=== PATIENT | female | born 1935 | race Caucasian/White ===

== ENCOUNTER 2020-04-24 13:07 | Emergency (ER) | payer MEDICARE, SELFPAY ==
[2020-04-24 13:07] VITALS: PULSE 77; RESP 16; TEMP 36.7; O2SAT 98; BMI 24.9
[2020-04-24 13:27] VITALS: BP 188/80
--- NOTE | 2020-04-24 13:32 | XR_ITS ---
WS: [id number] Portable AP upright chest, 04/24/2020 Clinical Data: chest pain Comparison: None. Findings: No nodules, masses or effusions are seen. The heart is normal. The pulmonary vascularity is not increased. No pneumonia or pneumothorax is seen. The aortic arch and descending aorta are tortuo us. The diaphragms are flattened. XR/XR chest 1V portable [id number] Impression: Atherosclerosis and hyperinflation.
--- NOTE | 2020-04-24 13:32 | ECG_ITS ---
[facility] Test Date: 2020-04-24 Pat Name: Treva Brooks Department: Room: Gender: Female Practice Support Specialist: : 1935 Requested By: Mary Lyons I Order Number: [id number] [place] MD: Melinda Reynoso M.D. Measurements Intervals [place] Rate: 69 P: 74 AR: 164 QRS: 64 QRSD: 82 T: 70 QT: 369 QTc: 397 Interpretive Statements SINUS RHYTHM EARLY REPOLARIZATION [ST ELEVATION WITH NORMALLY INFLECTED T WAVE] No previous ECG available for comparison Electronically Signed On 04-24-2020 19:12:07 ELECTRONIC EQUIPMENT REPAIRER by Melinda Reynoso M.D. [id number]
[2020-04-24 13:44] LABS: Basophils % 0.7 %; Eosinophils # 0.1 10^3/uL (0.0-0.8); Eosinophils % 1.3 %; Hemoglobin 12.3 g/dL (11.5-15.3); Lymphocytes # 1.1 10^3/uL (0.8-4.8); Lymphocytes % 18.9 %; Mean Corpuscular HGB Conc 33.2 g/dL (30.0-36.0); Mean Corpuscular Hemoglobin 29.9 pg (28.0-34.0); Mean Platelet Volume 9.9 fL (7.4-10.4); Monocytes # 0.5 10^3/uL (0.2-0.9); Monocytes % 8.9 %; Neutrophils # 4.17 10^3/uL (1.8-7.7); Neutrophils % 70.2 %; Nucleated Red Blood Cells % 0 %; Platelet Count 254 10^3/cmm (130-400); Red Blood Count 4.11 10^6/uL (4.1-5.3); Red Cell Distribution Width 12.9 % (12.1-15.1); White Blood Count 5.9 10^3/uL (4.0-10.0)
--- NOTE | 2020-04-24 13:44 | ED_ITS ---
HPI - Chest Pain General: Chief Complaint: Chest Pain Stated Complaint: ABD PAIN Time Seen by Provider: 04/24/20 13:09 Source: patient Mode of arrival: EMS Limitations: no limitations History of Present Illness: HPI narrative: 84-year-old female patient with a history of irritable bowel syndrome and who presents to the emergency department with abdominal pain for the last 2 weeks. Abdominal pain is diffuse, with no nausea or vomiting. About 3 days ago she also developed substernal/epigastric pain, she has a prior history of esophagitis and has had upper GI endoscope in the past. She is here to be evaluated for the above. MD complaint: chest pain Onset (ago): day(s) (3) Timing of current episode: constant Prior episodes: No Onset: during rest Pain location: substernal and epigastric Pain radiation: none Severity: mild Quality: heaviness Relieving factors: nothing Exacerbating factors: nothing Associated symptoms: Reports abdominal pain; Deny dyspnea, fever(s) or palpitations Review of Systems General: Reports: 10 or more systems reviewed and unremarkable except in HPI and below Const: Denies: fever(s), chills or body aches Eyes: Denies: change in vision or blurry vision ENMT: Denies: throat pain, enlarged tonsils, odynophagia, hoarseness, mouth pain or swelling of lips/tongue Card: Reports: chest pain; Denies: palpitations, irregular heart rhythm, edema or swelling of feet/ankles Resp: Denies: dyspnea, productive cough or non-productive cough GI: Reports: abdominal pain : Denies: flank pain, difficulty voiding, dysuria, urinary frequency, urinary urgency or urinary hesitancy Musc: Denies: neck pain, back pain or extremity swelling Skin/Breast: Denies: rash, pruritus or erythema Neuro: Denies: headache(s), numbness in extremities or weakness in extremities Endo: Denies: polyuria, polydipsia or tired all the time Physical Exam Const: COMMON NORMALS: no acute distress, average body habitus, patient oriented x3, no limitations, healthy appearing, alert and well nourished HENMT: COMMON NORMALS: normocephalic, atraumatic and moist oral mucous membranes HEAD & SCALP: normocephalic and atraumatic Neck/C-Spine: COMMON NORMALS: no meningeal signs and no JVD Chest: COMMONS NORMALS: normal inspection of the chest and normal palpation of entire chest wall Resp: COMMON NORMALS: normal respiratory effort, No retractions, No use of accessory muscles, clear to auscultation bilaterally and percussion normal AUSCULTATION: clear to auscultation bilaterally PERCUSSION: percussion normal Cardio: COMMON NORMALS: no JVD, regular rate, regular rhythm, S1 normal heart sound present, S2 normal heart sound present, No gallops present (Cardio), No clicks present (Cardio), No murmurs present (Cardio), No rub (Cardio) and Peripheral pulses 2+ throughout RATE: regular rate RHYTHM: regular rhythm HEART SOUNDS: S1 normal heart sound present and S2 normal heart sound present PERIPHERAL PULSES: Peripheral pulses 2+ throughout GI: COMMON NORMALS: Normal to inspection, nondistended, normoactive bowel sounds present, Soft to palpation, non-tender, No hepatosplenomegaly present, no masses and no bruits PALPATION: Yes Soft to palpation and Yes No hepatosplenomegaly present Extremity: COMMON NORMALS: normal to inspection, full ROM, capillary refill normal, no calf tenderness and no pedal edema Neuro: COMMON NORMALS: patient oriented x3 SENSORIUM/ORIENTATION: Yes alert MENINGEAL SIGNS: Yes no meningeal signs Skin: COMMON NORMALS: no rashes or lesions noted, no wounds, turgor normal, no jaundice, no petechiae and no mottling GENERAL SKIN EXAM: no rashes or lesions noted and turgor normal Course Reevaluation(s): Reevaluation #1: Discussed her lab and imaging findings with her. Cardiac work-up negative. Lipase negative. UA is suggestive of a UTI, although she says she has interstitial cystitis. She is given a dose of intravenous ceftriaxone in the emergency department and she will be discharged home on oral antibiotics. The GI cocktail improved her symptoms, I will refer her for an outpatient endoscopy and give her a 2-week supply of oral pantoprazole. She voiced understanding and is in agreement with the plan. Time: 16:30 Vital Signs: Vital signs: Vital Signs Temperature 98.1 F 04/24/20 13:07 Pulse Rate 71 04/24/20 16:54 Respiratory Rate 16 04/24/20 16:54 Blood Pressure 155/65 04/24/20 16:54 Pulse Oximetry 99 04/24/20 16:54 MDM - Chest Pain MDM Narrative: Medical decision making narrative: 84-year-old female patient who presents with chest pain that is likely due to esophagitis/GERD. She has a history of the same. Pain improved following a GI cocktail. Evaluation was negative for an acute cardiac cause for her pain. She was also diagnosed with a UTI because a urine analysis was done since she had abdominal pain. She is discharged home on oral antibiotic and a PPI. She will be scheduled for an outpatient EGD. Medical Records: Attestation: I reviewed the patient's medical records. Lab Data: Attestation: I reviewed the patient's lab results. Labs: Lab Results 04/24/20 04/24/20 04/24/20 Range/Units 13:26 13:26 13:26 WBC 5.9 (4.0-10.0) 10^3/ uL RBC 4.11 (4.1-5.3) 10^6/u L Hgb 12.3 (11.5-15.3) g/dL Hct 37.0 (37.0-47.0) % MCV 90.0 (81-99) fL MCH 29.9 (28.0-34.0) pg MCHC 33.2 (30.0-36.0) g/dL RDW 12.9 (12.1-15.1) % Plt Count 254 (130-400) 10^3/c mm MPV 9.9 (7.4-10.4) fL Neut % (Auto) 70.2 % Lymph % (Auto) 18.9 % [place] % (Auto) 8.9 % Eos % (Auto) 1.3 % Baso % (Auto) 0.7 % Neut # (Auto) 4.17 (1.8-7.7) 10^3/u L Lymph # (Auto) 1.1 (0.8-4.8) 10^3/u L [place] # (Auto) 0.5 (0.2-0.9) 10^3/u L Eos # (Auto) 0.1 (0.0-0.8) 10^3/u L Baso # (Auto) 0.0 (0.0-0.1) 10^3/u L Nucleated RBC % (a uto) 0 % Nucleated RBCs # 0.0 /100WBC PT (12.1-14.9) SECO NDS INR (0.8-1.2) Sodium 129 L (136-145) mmol/L Potassium 4.4 (3.5-5.1) mmol/L Chloride 92 L (98-107) mmol/L Carbon Dioxide 25 (22-29) mmol/L Anion Gap 16.4 (5-19) BUN 6 L (8-23) mg/dL Creatinine 0.7 (0.5-0.9) mg/dL GFR Calculation Not Reportable Glucose 102 (65-115) mg/dL Calculated Osmolal ity 266 L (285-295) mOsm/k g Calcium 9.7 (8.5-10.5) mg/dL Total Bilirubin 0.3 (0.15-1.2) mg/dL AST 17 (0-32) U/L ALT 11 (0-33) U/L Alkaline Phosphata se 89 (35-105) IU/L Troponin T Baselin e 7 (0-10) ng/L Troponin T 120 [place] (0-10) ng/L Delta Troponin T (0-10) ABS# NT-Pro-B Natriuret Pep 202 (0-450) pg/mL Total Protein 6.8 (6.6-8.7) g/dL Albumin 4.0 (3.5-5.2) g/dL Globulin 2.8 (1.3-4.6) g/dL Lipase 50 (13-60) U/L Urine Color (Yellow) Urine Appearance (CLEAR) Urine pH (5-7) Ur Specific Gravit y (1.005-1.030) Urine Protein (Negative) Urine Glucose (UA) (Normal) Urine Ketones (Negative) Urine Blood (Negative) Urine Nitrate (Negative) Urine Bilirubin (Negative) Urine Urobilinogen (Negative) mg/dL Ur Leukocyte Rachel ase (Negative) Urine RBC (0-2) /hpf Urine WBC (0-5) /hpf Ur Squamous Epith Cells (0-5) /hpf Amorphous Sediment Urine Bacteria (NONE) /hpf 04/24/20 04/24/20 04/24/20 Range/Units 13:53 14:27 15:20 WBC (4.0-10.0) 10^3/ uL RBC (4.1-5.3) 10^6/u L Hgb (11.5-15.3) g/dL Hct (37.0-47.0) % MCV (81-99) fL MCH (28.0-34.0) pg MCHC (30.0-36.0) g/dL RDW (12.1-15.1) % Plt Count (130-400) 10^3/c mm MPV (7.4-10.4) fL Neut % (Auto) % Lymph % (Auto) % [place] % (Auto) % Eos % (Auto) % Baso % (Auto) % Neut # (Auto) (1.8-7.7) 10^3/u L Lymph # (Auto) (0.8-4.8) 10^3/u L [place] # (Auto) (0.2-0.9) 10^3/u L Eos # (Auto) (0.0-0.8) 10^3/u L Baso # (Auto) (0.0-0.1) 10^3/u L Nucleated RBC % (a uto) % Nucleated RBCs # /100WBC PT 13.80 (12.1-14.9) SECO NDS INR 1.03 (0.8-1.2) Sodium (136-145) mmol/L Potassium (3.5-5.1) mmol/L Chloride (98-107) mmol/L Carbon Dioxide (22-29) mmol/L Anion Gap (5-19) BUN (8-23) mg/dL Creatinine (0.5-0.9) mg/dL GFR Calculation Glucose (65-115) mg/dL Calculated Osmolal ity (285-295) mOsm/k g Calcium (8.5-10.5) mg/dL Total Bilirubin (0.15-1.2) mg/dL AST (0-32) U/L ALT (0-33) U/L Alkaline Phosphata se (35-105) IU/L Troponin T Baselin e (0-10) ng/L Troponin T 120 [place] 6.48 (0-10) ng/L Delta Troponin T -0.52 L (0-10) ABS# NT-Pro-B Natriuret Pep (0-450) pg/mL Total Protein (6.6-8.7) g/dL Albumin (3.5-5.2) g/dL Globulin (1.3-4.6) g/dL Lipase (13-60) U/L Urine Color Yellow (Yellow) Urine Appearance Clear (CLEAR) Urine pH 7 (5-7) Ur Specific Gravit y 1.000 L (1.005-1.030) Urine Protein Neg (Negative) Urine Glucose (UA) Norm (Normal) Urine Ketones 1+ H (Negative) Urine Blood Trace H (Negative) Urine Nitrate Negative (Negative) Urine Bilirubin Neg (Negative) Urine Urobilinogen Norm (Negative) mg/dL Ur Leukocyte Rachel ase 1+ H (Negative) Urine RBC 0-4 H (0-2) /hpf Urine WBC 5-10 H (0-5) /hpf Ur Squamous Epith Cells 0-4 H (0-5) /hpf Amorphous Sediment Not Reportable Urine Bacteria 2+ H (NONE) /hpf Imaging Data^: CXR: Attestation: I personally reviewed and interpreted this imaging study as follows: Radiologist's impression: [address] [address] XRay Report Signed Patient: Yudith Brooks #: [id number] : 1935cct#:[id number] Age/Sex: 84 / FADM Date: 04/24/20 Loc: [facility]/Bed: Attending Dr: Ordering Provider/Ordering MD: Mary Lyons [place] [facility] [place] of Service: 04/24/20 Procedure(s): XR chest 1V portable [id number] Accession Number(s): [id number] Report Number: [id number] WS: [id number] Portable AP upright chest, 04/24/2020 Clinical Data: chest pain Comparison: None. Findings: No nodules, masses or effusions are seen. The heart is normal. The pulmonary vascularity is not increased. No pneumonia or pneumothorax is seen. The aortic arch and descending aorta are tortuous. The diaphragms are flattened. XR/XR chest 1V portable [id number] Impression: Atherosclerosis and hyperinflation. Dictated By:Cristin Martel MD Signed By:Cristin Martel [facility] [place]:04/24/20 1352 DD/ 1351 EKG Data^: EKG 1: Attestation: I personally reviewed and interpreted this EKG as follows: EKG interpretation date: 04/24/20 EKG interpretation time: 13:14 Prior EKG tracings: not available for review Interpretation: Sinus rhythm. Heart rate is [address] changes. EKG 2: Attestation: I personally reviewed and interpreted this EKG as follows: EKG interpretation date: 04/24/20 EKG interpretation time: 15:34 Prior EKG tracings: available for review Interpretation: Normal sinus rhythm. Heart rate [address] changes. Normal axis. Discharge Plan Discharge Patient Disposition: Home Clinical Impression: Esophagitis, Non-cardiac chest pain, Acute UTI Condition: Stable Prescriptions: New Protonix 40 mg tablet,delayed release (DR/EC) 40 mg PO DAILY Qty: 14 RF: 0 Augmentin 500-125 mg tablet 1 tab PO BID Qty: 10 RF: 0 Continued clonazepam 1 mg tablet 1 mg PO BID@0700,2100 RF: 0 Restasis 0.05 % dropperette 0.05 drp ophthalmic (eye) BID@0700,2100 RF: 0 Allergy 1 tab PO DAILY PRN (Reason: Allergy Symptoms) RF: 0 Gas-X 1 tab PO DAILY PRN (Reason: excess gas) RF: 0 Discharge Orders: Discharge ED (Routine); Ordered 04/24/20 Ordered By: Mary Lyons Referrals: Edison Chong [Primary Care Provider] - 1-3 days Discharge Diet: As Directed Discharge Activity: Increase activity as tolerated Patient Instructions: Diet for Ulcers and Gastritis (ED), Gastroesophageal Reflux Disease (ED) Activity Restrictions/Additional Instructions: Return for any new or worsening symptoms. Follow-up with your primary care provider within 3 days. You will be contacted to schedule an outpatient endoscopy. Follow the diet as advised. Coding Level of Care Code ED Office Copy Selector for Chg Fwd Exam Comprehensive
[2020-04-24 14:01] LABS: Troponin(5th) Baseline 7 ng/L (0-10)
[2020-04-24 14:09] LABS: Alanine Aminotransferase 11 U/L (0-33); Alkaline Phosphatase 89 IU/L (35-105); Anion Gap 16.4 (5-19); Aspartate Amino Transferase 17 U/L (0-32); Blood Urea Nitrogen 6 mg/dL (8-23); Calcium 9.7 mg/dL (8.5-10.5); Carbon Dioxide 25 mmol/L (22-29); Chloride 92 mmol/L (98-107); Globulin 2.8 g/dL (1.3-4.6); Glucose 102 mg/dL (65-115); Lipase 50 U/L (13-60); NT Pro B Type Natriuretic Pept 202 pg/mL (0-450); Osmolality Calculated 266 mOsm/kg (285-295); Potassium 4.4 mmol/L (3.5-5.1); Sodium 129 mmol/L (136-145); Total Bilirubin 0.3 mg/dL (0.15-1.2); Total Protein 6.8 g/dL (6.6-8.7)
[2020-04-24 14:14] LABS: INR 1.03 (0.8-1.2)
[2020-04-24] MEDS: lidocaine 2% viscous 15 ML, aluminum-mag hydrox-simethicon 30 ML, sucralfate oral liq 1 GM PO (14:15)
[2020-04-24 14:28] VITALS: BP 156/104; PULSE 74; RESP 18; O2SAT 93
[2020-04-24 15:14] VITALS: BP 168/92; PULSE 76; RESP 18; O2SAT 98
[2020-04-24 15:16] LABS: Add Urine Culture? Yes; Add Urine Microscopic? YES; Bacteria Urine 2+ /hpf; Bilirubin Urine Neg (Negative); Blood Urine Trace (Negative); Glucose Urine UA Norm (Normal); Ketones Urine 1+ (Negative); Leukocyte Esterase Urine 1+ (Negative); Nitrate Urine Negative (Negative); Protein Urine Neg (Negative); RBC Urine 0-4 /hpf (0-2); Squamous Epithelial Cell Urine 0-4 /hpf (0-5); Urine Appearance Clear (CLEAR); Urine Color Yellow (Yellow); Urobilinogen Urine Norm (Negative); pH Urine 7 (5-7)
--- NOTE | 2020-04-24 15:32 | ECG_ITS ---
[facility] Test Date: 2020-04-24 Pat Name: Treva Brooks Department: Room: Gender: Female Podiatry Professor: : 1935 Requested By: Mary Lyons I Order Number: [id number] [place] MD: Melinda Reynoso M.D. Measurements Intervals [place] Rate: 67 P: 94 [place]: 171 QRS: 79 QRSD: 96 T: 61 QT: 383 QTc: 405 Interpretive Statements SINUS RHYTHM Compared to ECG 04/24/2020 13:14:17 Early repolarization no longer present Electronically Signed On 04-24-2020 19:17:55 COMPRESSOR ASSEMBLER by Melinda Reynoso M.D. [email or web address]/[id number]
[2020-04-24] MEDS: cefTRIAXone 1,000 MG in sodium chloride 0.9% (plus) 50 ML 100 MG IV (15:45)
[2020-04-24] MEDS: sodium chloride 0.9% 1,000 ML 999 ML IV (15:46)
[2020-04-24 15:50] VITALS: BP 140/78; PULSE 66; RESP 18; O2SAT 97
[2020-04-24 15:57] LABS: Troponin 5 2HR 6.48 ng/L (0-10)
[2020-04-24 16:01] LABS: Troponin 5 2HR Delta -0.52 ABS# (0-10)
[2020-04-24 16:54] VITALS: BP 155/65; PULSE 71; RESP 16; O2SAT 99
== END 2020-04-24 16:55 | disposition home or self-care (01) ==
PROVIDERS: Emergency Provider Family Medicine; PCP Family Medicine
DX: R07.89 Other chest pain (principal); N39.0 Urinary tract infection, site not specified; K20.90 Esophagitis, unspecified without bleeding
CPT/HCPCS: 12345; 36415; 71045; 80053; 81001; 83690; 83880; 84484; 85025; 85610; 87086; 93005; 96365; 99283; 99284; J0696; J7030

== ENCOUNTER 2022-06-03 14:01 | Emergency (ER) | payer MEDICARE, SELFPAY ==
[2022-06-03 14:04] VITALS: BP 154/113; PULSE 72; O2SAT 97; BMI 20.3
--- NOTE | 2022-06-03 14:10 | ED_ITS ---
HPI - Abdominal Pain General: Chief Complaint: Abdominal Pain Stated Complaint: ABDOMINAL PAIN/ DISTENTION Time Seen by Provider: 06/03/22 14:09 History of Present Illness: Ms. Brooks is an 87-year-old lady with history of IBS and H. pylori as well as history of cholecystectomy presenting to the emergency department for abdominal pain. She reports onset of symptoms earlier today. Mostly right lower quadrant associated with some nausea. Denies fevers. Worse with movement and palpation. Additionally last week she endorses some substernal and left chest heaviness with radiation of the neck that was exertional. She did not seek medical attention at that time. No other specific changes in health, exacerbating, or alleviating factors identified. Onset (ago): hour(s) Pain Consistency: constant Location: RLQ Severity: moderate Quality: aching Radiation: none Migration to: no migration Exacerbating factors: movement Relieving factors: nothing Associated Symptoms: Reports no associated symptoms Review of Systems General: Reports: 10 or more systems reviewed and unremarkable except in HPI and below PFSH ED PFSH: Medical History (Updated 06/11/22 @ 00:01 by DEVANTE Villalobos) IBS (irritable bowel syndrome) Surgical History (Updated 06/03/22 @ 14:27 by Richard Worthy MD) History of cholecystectomy Physical Exam Const: COMMON NORMALS: alert GENERAL APPEARANCE: cooperative and well developed HENMT: COMMON NORMALS: normocephalic and atraumatic HEAD & SCALP: normoc ephalic and atraumatic Eye: COMMON NORMALS: conjunctivae normal CONJUNCTIVA: Yes conjunctivae normal SCLERA: sclerae normal Neck/C-Spine: COMMON NORMALS: supple GENERAL: Yes trachea midline Resp: COMMON NORMALS: clear to auscultation bilaterally EFFORT & INSPECTION: Yes able to speak in complete sentences AUSCULTATION: clear to auscultation bilaterally Cardio: COMMON NORMALS: regular rate and regular rhythm RATE: regular rate RHYTHM: regular rhythm GI: COMMON NORMALS: Soft to palpation PALPATION: Yes Soft to palpation, Yes Tenderness to palpation present (GI) Details: RLQ, No Guarding due to palpation present (GI) and No Rigid due to palpation Extremity: GENERAL: Yes normal exam except as noted and No edema Neuro: COMMON NORMALS: moves all extremities SENSORIUM/ORIENTATION: Yes alert and No Orientation impaired Psych: COMMON NORMALS: mental status grossly normal and Normal thought process present THOUGHT PROCESS: Normal thought process present Course Vital Signs: Vital signs: Vital Signs Pulse Rate 70 06/03/22 14:12 Respiratory Rate 18 06/03/22 14:12 Blood Pressure 122/58 06/03/22 17:01 Pulse Oximetry 99 06/03/22 17:01 Oxygen Delivery Me thod 06/03/22 14:12 MDM - Abdominal Pain Medical Decision Making 87-year-old lady presenting with abdominal pain. Exam as above, abdominal tenderness without evidence of acute surgical abdomen. Patient is nontoxic in appearance. EKG demonstrates sinus rhythm with normal axis and intervals, no STEMI. Labs with no significant hematologic or metabolic abnormality to explain symptoms. Perhaps mild dehydration is present. No UTI. Chest x-ray with no lobar consolidation or pneumothorax. CT demonstrates likely enteritis, incidental findings discussed with patient. Most likely etiology of patient's symptoms is enteritis, constipation, and abdominal pain. Satisfactory for outpatient management. The results of ED evaluation were discussed with the patient including prescriptions and/or symptomatic cares (if applicable) including appropriate and responsible use, followup plan, and return precautions. The patient verbalized understanding and felt safe for discharge. Medical Records I reviewed the patient's medical records. Lab Data I reviewed the patient's lab results. 06/03/22 14:15 06/03/22 14:15 Labs/Radiology: Radiology Impressions Abdomen/Pelvis CT 06/03/22 14:18 IMPRESSION: 1. Prominent fluid in the small bowel without dilation may reflect an enteritis. 2. Diverticulosis without diverticulitis. 3. Emphysematous changes. 4. Bibasilar atelectasis. 5. Cholecystectomy. 6. Biliary dilation, likely related to prior cholecystectomy. 7. Left kidney lower pole nonobstructing calyceal stone. 8. Bilateral renal cysts, negative for follow up. 9. Constipation. COMMENTS: Consistent with the [place] [employer]'s Incidental Findings Committee white paper (J Am Ismael Radiol 2018): Any incidental renal lesion less than 1 cm or classified as too small to characterize, or any incidental cystic renal lesion characterized as simple-appearing, is likely benign. No follow-up imaging is recommended for these lesions per consensus recommendations based on imaging criteria. Chest X-Ray 06/03/22 14:18 IMPRESSION: No acute findings. Laboratory Results WBC 9.1 10^3/uL (4.0-10.0) 06/03/22 14:15 RBC 4.15 10^6/uL (4.1-5.3) 06/03/22 14:15 Hgb 12.2 g/dL (11.5-15.3) 06/03/22 14:15 Hct 38.4 % (37.0-47.0) 06/03/22 14:15 MCV 92.5 fl (81-99) 06/03/22 14:15 MCH 29.4 pg (28.0-34.0) 06/03/22 14:15 MCHC 31.8 g/dL (30.0-36.0) 06/03/22 14:15 RDW 14.3 % (12.1-15.1) 06/03/22 14:15 Plt Count 170 10^3/cmm (130-400) 06/03/22 14:15 MPV 11.5 fL (7.4-10.4) H 06/03/22 14:15 Neut % (Auto) 87.9 % 06/03/22 14:15 Lymph % (Auto) 6.8 % 06/03/22 14:15 [place] % (Auto) 4.7 % 06/03/22 14:15 Eos % (Auto) 0.2 % 06/03/22 14:15 Baso % (Auto) 0.2 % 06/03/22 14:15 Neut # (Auto) 8.03 10^3/uL (1.8-7.7) H 06/03/22 14:15 Lymph # (Auto) 0.6 10^3/uL (0.8-4.8) L 06/03/22 14:15 [place] # (Auto) 0.4 10^3/uL (0.2-0.9) 06/03/22 14:15 Eos # (Auto) 0.0 10^3/uL (0.0-0.8) 06/03/22 14:15 Baso # (Auto) 0.0 10^3/uL (0.0-0.1) 06/03/22 14:15 Nucleated RBC % (auto) 0 % 06/03/22 14:15 Nucleated RBCs # 0.0 /100WBC 06/03/22 14:15 Sodium 135 mmol/L (136-145) L 06/03/22 15:12 Potassium 4.9 mmol/L (3.5-5.1) 06/03/22 15:12 Chloride 103 mmol/L (98-107) 06/03/22 15:12 Carbon Dioxide 23 mmol/L (22-29) 06/03/22 15:12 Anion Gap 13.9 (5-19) 06/03/22 15:12 BUN 11 mg/dL (8-23) 06/03/22 15:12 Creatinine 0.6 mg/dL (0.5-0.9) 06/03/22 15:12 GFR Calculation Not Reportable 06/03/22 15:12 Glucose 130 mg/dL (65-115) H 06/03/22 15:12 Calculated Osmolality 281 mOsm/kg (285-295) L 06/03/22 15:12 Calcium 8.7 mg/dL (8.5-10.5) 06/03/22 15:12 Total Bilirubin 0.2 mg/dL (0.15-1.2) 06/03/22 15:12 AST 27 U/L (0-32) 06/03/22 15:12 ALT 17 U/L (0-33) 06/03/22 15:12 Alkaline Phosphatase 50 U/L (35-105) 06/03/22 15:12 Troponin T Baseline 6 ng/L (0-10) 06/03/22 14:15 Total Protein 6.1 g/dL (6.6-8.7) L 06/03/22 15:12 Albumin 3.4 g/dL (3.5-5.2) L 06/03/22 15:12 Globulin 2.7 g/dL (1.3-4.6) 06/03/22 15:12 Lipase 30 U/L (13-60) 06/03/22 15:12 Urine Color Yellow (Yellow) 06/03/22 15:09 Urine Appearance Clear (CLEAR) 06/03/22 15:09 Urine pH 5 (5-7) 06/03/22 15:09 Ur Specific [place] 1.020 (1.005-1.030) 06/03/22 15:09 Urine Protein Neg (Negative) 06/03/22 15:09 Urine Glucose (UA) Norm (Normal) 06/03/22 15:09 Urine Ketones Negative (Negative) 06/03/22 15:09 Urine Blood Neg (Negative) 06/03/22 15:09 Urine Nitrate Negative (Negative) 06/03/22 15:09 Urine Bilirubin Neg (Negative) 06/03/22 15:09 Urine Urobilinogen Neg mg/dL (Negative) 06/03/22 15:09 Ur Leukocyte Esterase Negative (Negative) 06/03/22 15:09 Discharge Plan Discharge Patient Disposition: Home Clinical Impression: Abdominal pain, Constipation, Enteritis Condition: Stable Prescriptions: No Action clonazepam 1 mg tablet 1 mg PO BEDTIME multivitamin Tablet 1 tab PO DAILY tetracycline 500 mg capsule 500 mg PO TID Rx Instructions: FOR 10 DAYS (RX FILLED 05/19/22) metronidazole 500 mg tablet 500 mg PO TID Rx Instructions: FOR 10 DAYS (RX FILLED 05/19/22) Pepto-Bismol 262 mg Tablet,Chewable 524 mg PO QID PRN (Reason: UNKNOWN) vitamin B complex Tablet 1 tab PO DAILY Vitamin D3 25 mcg (1,000 unit) Capsule 25 mcg PO DAILY Dry Eye Relief 1-0.2-0.2 % Drops 1 drp OPHTHALMIC (EYE) BID Prilosec OTC 20 mg Tablet,Delayed Release (Dr/Ec) 20 mg PO BID PreserVision AREDS-2 250-90-40-1 mg Capsule 1 tab PO BID Probiotic Blend 2 billion cell-50 mg Capsule 1 cap PO EVERY OTHER DAY magnesium oxide 400 mg magnesium Tablet 400 mg PO DAILY Discharge Orders: Discharge ED (Routine); Ordered 06/03/22 Ordered By: Richard Worthy Referrals: Edison Chong [Primary Care Provider] - Discharge Diet: Advance as tolerated and Clear Liquid Discharge Activity: Increase activity as tolerated Patient Instructions: Constipation (ED), Abdominal Pain (ED), Enteritis (ED), Opioid Safety Activity Restrictions/Additional Instructions: Thank you for visiting the emergency department. You were seen and evaluated for abdominal pain. The exact cause of your symptoms is unclear though likely related to enteritis and constipation. I recommend increasing your MiraLAX to 3 times daily for the next 3 days and the n adjust as necessary to have multiple applesauce consistency bowel movements per day. Please ensure that you are staying hydrated. Please follow-up with your primary care provider. Return to the emergency department for uncontrolled symptoms, failure to improve, or anything else that you are concerned about and feel needs emergency department evaluation. Coding Level of Care Code ED Senior Clinical Data Coordinator for Sonam Saldivar
[2022-06-03 14:12] VITALS: BP 137/65; PULSE 70; RESP 18; O2SAT 96
--- NOTE | 2022-06-03 14:18 | CTR_ITS ---
PROCEDURE INFORMATION: Exam: CT Abdomen And Pelvis With Contrast Exam date and time: 06/03/2022 3:55 PM Age: 87 years old Clinical indication: Abdominal pain; Generalized; Prior surgery; Surgery date: 6+ months; Surgery type: Shelli; Tubal ligation; Additional info: Rlq pain TECHNIQUE: Imaging protocol: Computed tomography of the abdomen and pelvis with contrast. Radiation optimization: All CT scans at this facility use at least one of these dose optimization techniques: automated exposure control; mA and/or kV adjustment per patient size (includes targeted exams where dose is matched to clinical indication); or iterative reconstruction. Contrast material: OMNI 350; Contrast volume: 100 ml; Contrast route: INTRAVENOUS (IV); REPORTING DATA: Count of CT and Cardiac NM exams in prior 12 months: This patient has received 0 known CTs and 0 known cardiac nuclear medicine studies in the 12 months prior to the current study. COMPARISON: CR XR chest 1V portable [id number] 06/03/2022 2:45 PM RADIATION DOSE METRICS: Total DLP (mGy-cm): 452.83 FINDINGS: Lungs: Emphysematous changes. Bibasilar atelectasis. Liver: Normal. No mass. Gallbladder and bile ducts: Cholecystectomy. Biliary dilation, likely related to prior cholecystectomy. Pancreas: Normal. No ductal dilation. Spleen: Normal. No splenomegaly. Adrenal glands: Normal. No mass. Kidneys and ureters: Left kidney lower pole nonobstructing calyceal stone. Bilateral renal cysts, negative for follow up. Stomach and bowel: Prominent fluid in the small bowel without dilation may reflect an enteritis. Diverticulosis without diverticulitis. Constipation. Appendix: No evidence of appendicitis. Intraperitoneal space: Unremarkable. No free air. No significant fluid collection. Vasculature: Unremarkable. No abdominal aortic aneurysm. Lymph nodes: Unremarkable. No enlarged lymph nodes. Urinary bladder: Unremarkable as visualized. Reproductive: Unremarkable as visualized. Bones/joints: Unremarkable. No acute fracture. Soft tissues: Unremarkable. CT/CT abdomen pelvis w con* [id number] IMPRESSION: 1. Prominent fluid in the small bowel without dilation may reflect an enteritis. 2. Diverticulosis without diverticulitis. 3. Emphysematous changes. 4. Bibasilar atelectasis. 5. Cholecystectomy. 6. Biliary dilation, likely related to prior cholecystectomy. 7. Left kidney lower pole nonobstructing calyceal stone. 8. Bilateral renal cysts, negative for follow up. 9. Constipation. COMMENTS: Consistent with the [employer]'s Incidental Findings Committee white paper (J Am Ismael Radiol 2018): Any incidental renal lesion less than 1 cm or classified as too small to characterize, or any incidental cystic renal lesion characterized as simple-appearing, is likely benign. No follow-up imaging is recommended for these lesions per consensus recommendations based on imaging criteria.
--- NOTE | 2022-06-03 14:18 | XRR_ITS ---
PROCEDURE INFORMATION: Exam: XR Chest Exam date and time: 06/03/2022 2:45 PM Age: 87 years old Clinical indication: Sternal or substernal pain; Patient HX: Last week she endorses some substernal and left chest heaviness with radiation of the neck that was exertional. ; Additional info: Cp TECHNIQUE: Imaging protocol: Radiologic exam of the chest. Views: 1 view. COMPARISON: CR XR chest 1V portable [id number] 04/24/2020 1:42 PM FINDINGS: Lungs: Unremarkable. No consolidation. Pleural spaces: Unremarkable. No pleural effusion. No pneumothorax. Heart/Mediastinum: Unremarkable. No cardiomegaly. Bones/joints: Unremarkable. XR/XR chest 1V portable [id number] IMPRESSION: No acute findings.
[2022-06-03 14:27] LABS: Basophils % 0.2 %; Eosinophils % 0.2 %; Hematocrit 38.4 % (37.0-47.0); Hemoglobin 12.2 g/dL (11.5-15.3); Lymphocytes # 0.6 10^3/uL (0.8-4.8); Lymphocytes % 6.8 %; Mean Corpuscular HGB Conc 31.8 g/dL (30.0-36.0); Mean Corpuscular Hemoglobin 29.4 pg (28.0-34.0); Mean Corpuscular Volume 92.5 fl (81-99); Mean Platelet Volume 11.5 fL (7.4-10.4); Monocytes # 0.4 10^3/uL (0.2-0.9); Monocytes % 4.7 %; Neutrophils # 8.03 10^3/uL (1.8-7.7); Neutrophils % 87.9 %; Nucleated Red Blood Cells % 0 %; Platelet Count 170 10^3/cmm (130-400); Red Blood Count 4.15 10^6/uL (4.1-5.3); Red Cell Distribution Width 14.3 % (12.1-15.1); White Blood Count 9.1 10^3/uL (4.0-10.0)
--- NOTE | 2022-06-03 14:50 | ECG_ITS ---
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 Measurements Intervals [place] Rate: 73 P: 98 CO: 164 QRS: 81 QRSD: 90 T: 74 QT: 384 QTc: 424 Interpretive Statements SINUS RHYTHM Compared to ECG 04/24/2020 15:34:03 No significant changes Electronically Signed On 06-03-2022 21:46:03 BOARD LAYER by Melinda Reynoso M.D. [id number] f
[2022-06-03 14:54] LABS: Troponin(5th) Baseline 6 ng/L (0-10)
[2022-06-03 15:33] LABS: Add Urine Microscopic? NO; Charge for UA Resulting for Rev
[2022-06-03 15:36] LABS: Alanine Aminotransferase 17 U/L (0-33); Albumin Level 3.4 g/dL (3.5-5.2); Alkaline Phosphatase 50 U/L (35-105); Blood Urea Nitrogen 11 mg/dL (8-23); Calcium 8.7 mg/dL (8.5-10.5); Carbon Dioxide 23 mmol/L (22-29); Chloride 103 mmol/L (98-107); Globulin 2.7 g/dL (1.3-4.6); Glucose 130 mg/dL (65-115); Lipase 30 U/L (13-60); Osmolality Calculated 281 mOsm/kg (285-295); Sodium 135 mmol/L (136-145); Total Bilirubin 0.2 mg/dL (0.15-1.2); Total Protein 6.1 g/dL (6.6-8.7)
[2022-06-03 15:39] LABS: Anion Gap 13.9 (5-19); Aspartate Amino Transferase 27 U/L (0-32); Potassium 4.9 mmol/L (3.5-5.1)
[2022-06-03 15:44] LABS: Bilirubin Urine Neg (Negative); Blood Urine Neg (Negative); Glucose Urine UA Norm (Normal); Ketones Urine Negative (Negative); Leukocyte Esterase Urine Negative (Negative); Nitrate Urine Negative (Negative); Protein Urine Neg (Negative); Urine Appearance Clear (CLEAR); Urine Color Yellow (Yellow); Urobilinogen Urine Neg (Negative); pH Urine 5 (5-7)
[2022-06-03 15:48] VITALS: O2SAT 96
[2022-06-03] MEDS: iohexol 350 mg/mL 500 mL Btl (per mL) IV (16:03)
[2022-06-03 16:05] VITALS: O2SAT 95
--- NOTE | 2022-06-03 16:19 | ECG_ITS ---
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 Measurements Intervals [place] Rate: 75 P: 83 MD: 174 QRS: 85 QRSD: 82 T: 80 QT: 366 QTc: 410 Interpretive Statements SINUS RHYTHM SEPTAL MYOCARDIAL INFARCTION , OF INDETERMINATE AGE [40+ ms Q WAVE IN V1/V2] Compared to ECG 06/03/2022 14:50:46 Myocardial infarct finding now present Electronically Signed On 06-03-2022 22:00:56 SEAFOOD PROCESS WORKER by Melinda Reynoso M.D. [id number]
[2022-06-03 16:30] VITALS: BP 122/58; O2SAT 99
[2022-06-03 17:01] VITALS: BP 122/58; O2SAT 99
== END 2022-06-03 17:02 | disposition home or self-care (01) ==
PROVIDERS: Emergency Provider Emergency Medicine; PCP Family Medicine
DX: K59.00 Constipation, unspecified (principal); K52.9 Noninfective gastroenteritis and colitis, unspecified; K57.90 Diverticulosis of intestine, part unspecified, without perforation or abscess without bleeding; N20.0 Calculus of kidney
CPT/HCPCS: 36415; 71045; 74177; 80053; 81003; 83690; 84484; 85025; 87040; 93005; 99285; Q9967

== ENCOUNTER 2023-05-10 09:08 | Emergency (ER) | payer MEDICARE, SELFPAY ==
[2023-05-10 09:15] VITALS: BP 123/77; PULSE 89; RESP 16; TEMP 36.6; O2SAT 98; BMI 19.5
--- NOTE | 2023-05-10 09:33 | CT_ITS ---
WS: [id number] CT HEAD TECHNIQUE: Noncontrast CT of the head obtained from the skullbase to the vertex. CLINICAL INFORMATION: right sided headache w/o deficet COMPARISON: None. DLP: 993.[address] scans at [facility] use at least one of these dose optimization techniques: automated e xposure control; mA and/or kV adjustment per patient size (includes targeted exams where dose is matc hed to clinical indication); or iterative reconstruction. FINDINGS: No evidence of intracranial hemorrhage. Ventricular system and basal cisterns are patent. Mild small vessel changes with moderate parenchymal volume loss worse in the frontal lobes. No extra-axial fluid collections. Calcified lesion overlying the LEFT inferior frontal lobe overlying the lateral sylvian fissure just posterior to the operculum measuring 1.4 x 1.0 x 1.5 cm. No visualized underlying edema. This can be followed up with MRI without and with gadolinium. Paranasal sinuses and mastoid air cells are well aerated. .Normal visualized soft tissues. IMPRESSION: 1. No evidence of intracranial hemorrhage 2. Presumed calcified meningioma overlying the LEFT inferior frontal lobe laterally at the sylvian f issure measuring 1.4 x 1.0 x 1.5 cm. No visualized surrounding edema. This could be followed up with MRI without and with gadolinium enhancement 3. Mild small vessel changes with moderate parenchymal volume loss worse in the frontal lobes. 4. Otherwise no acute intracranial findings.
--- NOTE | 2023-05-10 09:34 | ED_ITS ---
HPI - Headache 2 General: Chief Complaint: Headache Stated Complaint: headache Time Seen by Provider: 05/10/23 09:21 Source: patient and family Mode of arrival: ambulatory Limitations: no limitations History of Present Illness: This patient presents to the emergency family by family member. She states that over the past few weeks she has had intermittent right-sided sharp headaches. She states they come and go and they are sharp in nature seem to radiate from her ear or in the region thereabouts up into the mid scalp region. She states there are some areas of skin tenderness associated with these headaches. She states that they do not seem to be associated with painful chewing, no loss of vision, no difficulty with speech, no difficulty with focal weakness coordination etc. She has had no falls or head trauma. No significant headache history. Family collaborates that there is been no concerns about stroke etc. with focal weakness dysarthria etc. She has not seen any skin rashes etc. She has had zoster immunizations. She takes medication for irritable bowel but and [id number]-vuftjac vitamins but no other chronic medications. MD elicited complaint: headache Location: right and temporal Quality & Timing: aching and sharp Associated symptoms: Reports no associated symptoms; Deny chest pain, confusion, fever(s), nausea, pre-syncope, rash, syncope or vomiting Review of Systems 2 Const: Denies: fever(s) or chills Eyes: Denies: change in vision ENMT: Denies: throat pain, odynophagia, change in hearing, tinnitus, disequilibrium or nasal congestion Card: Denies: chest pain, palpitations, syncope or pre-syncope Resp: Denies: dyspnea, productive cough or non-productive cough GI: Denies: abdominal pain, nausea or vomiting : Denies: flank pain, difficulty voiding, dysuria or urinary frequency Musc: Denies: neck pain, back pain, extremity pain or extremity swelling Skin/Breast: Denies: rash, pruritus or erythema Neuro: Reports: headache(s); Denies: numbness in extremities, weakness in extremities, dizziness, vertigo, confusion, Slurred speech present or difficulty communicating thoughts Psych: Denies: anxiety or depression PFSH ED 2 PFSH: Medical History IBS (irritable bowel syndrome) Surgical History History of cholecystectomy Physical Exam 2 Narrative: EXAM NARRATIVE: He is a pleasant elderly female who makes good eye contact is alert and goal- directed in her speech. Const: COMMON NORMALS: no acute distress, patient oriented x3, healthy appearing and alert GENERAL APPEARANCE: cooperative and comfortable O RIENTATION/CONSCIOUSNESS: Yes awake, Yes oriented to person and Yes oriented to place HENMT: COMMON NORMALS: normocephalic (Tortuous vessels noted but no tenderness over the temporal artery.), atraumatic, hearing grossly normal bilaterally, EAC's normal, TM's normal bilaterally, Normal nasal mucous membranes and turbinates present, moist oral mucous membranes and oropharynx normal HEAD & SCALP: normocephalic (Tortuous vessels noted but no tenderness over the temporal artery.) and atraumatic FACE & SINUS: normal facial exam, sinuses nontender and face symmetric NOSE: Normal nasal mucous membranes and turbinates present EXTERNAL AUDITORY CANAL: EAC's normal TYMPANIC MEMBRANE: TM's normal bilaterally Eye: COMMON NORMALS: Equal, round and reactive pupils present, EOMs intact bilaterally and conjunctivae normal CONJUNCTIVA: Yes conjunctivae normal P UPIL: Yes Equal, round and reactive pupils present Neck/C-Spine: COMMON NORMALS: full ROM, no lymphadenopathy, supple, no JVD and No carotid bruits Resp: COMMON NORMALS: normal respiratory effort, No use of accessory muscles and clear to auscultation bilaterally EFFORT & INSPECTION: Yes able to speak in complete sentences AUSCULTATION: clear to auscultation bilaterally Cardio: COMMON NORMALS: no JVD, regular rate, regular rhythm, No murmurs present (Cardio) and Peripheral pulses 2+ throughout RATE: regular rate R HYTHM: regular rhythm PERIPHERAL PULSES: Peripheral pulses 2+ throughout GI: COMMON NORMALS: Normal to inspection, nondistended, normoactive bowel sounds present : COMMON NORMALS: Yes no CVA tenderness BLADDER/KIDNEY EXAM: Yes no CVA tenderness Back/Pelvis: COMMON NORMALS: no CVA tenderness, thoracic and lumbar spine normal to inspection, no thoracic nor lumbar tenderness, thoraco-lumbar ROM normal and straight leg raise negative bilaterally Extremity: COMMON NORMALS: normal to inspection, full ROM, capillary refill normal, no calf tenderness and no pedal edema Neuro: COMMON NORMALS: patient oriented x3, moves all extremities, no focal motor deficits, no sensory deficits noted and gait normal S ENSORIUM/ORIENTATION: Yes alert, Yes oriented to person and Yes oriented to place CRANIAL NERVES: Yes CN normal except as noted Psych: COMMON NORMALS: mental status grossly normal Skin: COMMON NORMALS: no rashes or lesions noted, no wounds and turgor normal GENERAL SKIN EXAM: no rashes or lesions noted and turgor normal Course 2 Reevaluation(s): Reevaluation #1: Patient is clinically stable. She did have an ancillary symptom that she shared with the RN and I discussed with her. She apparently has a history of interstitial cystitis and states that she was having some dysuria symptoms yesterday and wondered know if we could check her urine for any signs of infection. I shared with her the reassuring findings of a normal CT scan with incidental findings of which are not acute in nature but can be followed up by neurology and the likelihood that this represents trigeminal neuralgia and unlikely to be herpes zoster, giant cell arteritis etc. Discussed trial of therapy with Tegretol and low-dose and with neurology follow-up with both she and her accompanying daughter. Time: 11:35 Vital Signs: Vital signs: Vital Signs Temperature 97.8 F 05/10/23 09:15 Pulse Rate 71 05/10/23 10:31 Respiratory Rate 16 05/10/23 09:15 Blood Pressure 115/53 05/10/23 10:31 Pulse Oximetry 99 05/10/23 10:31 Oxygen Delivery Me thod Room Air 05/10/23 10:31 MDM - Headache Medical Decision Making This lady made her way to the emergency department today because of concerns about persistent right-sided headache which has been present for several weeks intermittently sharp in nature and lancinating from in the region of the right ear up into the temporal and central region of her scalp with some associated tender skin etc. No associated rash etc. no head trauma no other neurologic findings. Differential included trigeminal neuralgia, herpes zoster, giant cell arteritis as the primary likely causes but also certainly otitis, mastoiditis, intracranial etiologies could also be at play. Sed rate was obtained which was reassuring. Noncontrasted CT showed no acute findings there was an incidental finding but not likely contributory to her current presentation. Likely etiology at this point is trigeminal neuralgia and she has been tried on a trial of Tegretol and referred for neurology follow-up. Also she has a urine positive that suggest lower urinary tract infection she was provided Macrodantin to treat this condition. No evidence at this time of sepsis or upper tract involvement. Lab Data I reviewed the patient's lab results. 05/10/23 09:52 05/10/23 09:52 Laboratory Results WBC 4.35 10^3/uL (3.29-11.43) 05/10/23 09:52 RBC 4.17 10^6/uL (3.85-5.65) 05/10/23 09:52 Hgb 12.80 g/dL (11.27-16.99) 05/10/23 09:52 Hct 38.9 % (36-47) 05/10/23 09:52 MCV 93.3 fl (85-98) 05/10/23 09:52 MCH 30.7 pg (27-33) 05/10/23 09:52 MCHC 32.9 g/dL (30-55) 05/10/23 09:52 RDW 13.5 % (12.1-15.1) 05/10/23 09:52 Plt Count 188 10^3/cmm (157-399) 05/10/23 09:52 MPV 10.4 fL (7.4-10.4) 05/10/23 09:52 Neut % (Auto) 63.5 % 05/10/23 09:52 Lymph % (Auto) 22.3 % 05/10/23 09:52 Nicholas % (Auto) 11.7 % 05/10/23 09:52 Eos % (Auto) 1.4 % 05/10/23 09:52 Baso % (Auto) 0.9 % 05/10/23 09:52 Neut # (Auto) 2.76 10^3/uL (1.8-7.7) 05/10/23 09:52 Lymph # (Auto) 1.0 10^3/uL (0.8-4.8) 05/10/23 09:52 Nicholas # (Auto) 0.5 10^3/uL (0.2-0.9) 05/10/23 09:52 Eos # (Auto) 0.1 10^3/uL (0.0-0.8) 05/10/23 09:52 Baso # (Auto) 0.0 10^3/uL (0.0-0.1) 05/10/23 09:52 Nucleated RBC % (auto) 0 % 05/10/23 09:52 Nucleated RBCs # 0.0 /100WBC 05/10/23 09:52 ESR 8 mm/hr (0-15) 05/10/23 09:52 Sodium 134 mmol/L (136-145) L 05/10/23 09:52 Potassium 4.5 mmol/L (3.5-5.1) 05/10/23 09:52 Chloride 98 mmol/L (98-107) 05/10/23 09:52 Carbon Dioxide 29 mmol/L (22-29) 05/10/23 09:52 Anion Gap 11.5 (5-19) 05/10/23 09:52 BUN 18 mg/dL (8-23) 05/10/23 09:52 Creatinine 0.7 mg/dL (0.5-0.9) 05/10/23 09:52 GFR Calculation Not Reportable 05/10/23 09:52 Glucose 83 mg/dL (65-115) 05/10/23 09:52 Calculated Osmolality 279 mOsm/kg (285-295) L 05/10/23 09:52 Calcium 9.6 mg/dL (8.5-10.5) 05/10/23 09:52 Urine Color Yellow (Yellow) 05/10/23 11:29 Urine Appearance Cloudy (CLEAR) A 05/10/23 11:29 Urine pH 7 (5-7) 05/10/23 11:29 Ur Specific [place] 1.015 (1.005-1.030) 05/10/23 11:29 Urine Protein Neg (Negative) 05/10/23 11:29 Urine Glucose (UA) Norm (Normal) 05/10/23 11:29 Urine Ketones Negative (Negative) 05/10/23 11:29 Urine Blood Neg (Negative) 05/10/23 11:29 Urine Nitrate Positive (Negative) H 05/10/23 11:29 Urine Bilirubin Neg (Negative) 05/10/23 11:29 Urine Urobilinogen Norm mg/dL (Negative) 05/10/23 11:29 Ur Leukocyte Esterase 2+ (Negative) H 05/10/23 11:29 Urine RBC 0-4 /hpf (0-2) H 05/10/23 11:29 Urine WBC >100 /hpf (0-5) H 05/10/23 11:29 Ur Squamous Epith Cells 0-4 /hpf (0-5) H 05/10/23 11:29 Amorphous Sediment Not Reportable 05/10/23 11:29 Urine Bacteria 3+ /hpf (NONE) H 05/10/23 11:29 Urine Mucus Trace /hpf 05/10/23 11:29 Ur Oval Fat Bodies 2+ /hpf 05/10/23 11:29 All radiology interpretation(s) finalized by discharge Discharge Plan Discharge Patient Disposition: Home Clinical Impression: Right trigeminal neuralgia, Cystitis Condition: Stable Prescriptions: New carbamazepine 100 mg tablet extended release 12 hr 100 mg PO BID Qty: 60 0RF Macrodantin 100 mg capsule 100 mg PO BID 7 Days Qty: 14 0RF Rx Instructions: must administer with a meal/food No Action clonazepam 1 mg tablet 1 mg PO BEDTIME multivitamin Tablet 1 tab PO DAILY bismuth subsalicylate [Pepto-Bismol] 262 mg Tablet,Chewable 524 mg PO QID PRN (Reason: UNKNOWN) vitamin B complex Tablet 1 tab PO DAILY Dry Eye Relief 1-0.2-0.2 % Drops 1 drp OPHTHALMIC (EYE) BID omeprazole magnesium [Prilosec OTC] 20 mg Tablet,Delayed Release (Dr/Ec) 20 mg PO BID PRN (Reason: Acid Reflux) Probiotic Blend 2 billion cell-50 mg Capsule 1 cap PO EVERY OTHER DAY magnesium oxide 400 mg magnesium Tablet 400 mg PO DAILY Vitamin D2 10 mcg (400 unit) Tablet 10 mcg PO DAILY Macular Health Formula 5-1-7.5 mg Capsule 1 cap PO DAILY Prevagen 1 cap PO DAILY Discharge Orders: Discharge ED (Routine); Ordered 05/10/23 Ordered By: Ronni Higuera Referrals: Romeo Chong DO [Primary Care Provider] - Discharge Diet: Usual diet Discharge Activity: Increase activity as tolerated Patient Instructions: Opioid Safety, Pain Management Activity Restrictions/Additional Instructions: As we discussed while you are in the emergency department you have a condition called trigeminal neuralgia which is likely responsible for your current symptoms. We have prescribed a medication as a trial to see if it helps control your symptoms. We have also placed a consultation for the neurologist to see you in a follow-up visit. You should be contacted by case management to give you a time and date for this appointment. If you develop any worsening symptoms you are welcome to return to the emergency department anytime. As also noted you have evidence of a infection in your bladder and we have provided an antibiotic to take for that condition. Coding Level of Care Code ED Busperson for Sonam Saldivar
[2023-05-10 10:09] LABS: Basophils % 0.9 %; Eosinophils # 0.1 10^3/uL (0.0-0.8); Eosinophils % 1.4 %; Hematocrit 38.9 % (36-47); Lymphocytes % 22.3 %; Mean Corpuscular HGB Conc 32.9 g/dL (30-55); Mean Corpuscular Hemoglobin 30.7 pg (27-33); Mean Corpuscular Volume 93.3 fl (85-98); Mean Platelet Volume 10.4 fL (7.4-10.4); Monocytes # 0.5 10^3/uL (0.2-0.9); Monocytes % 11.7 %; Neutrophils # 2.76 10^3/uL (1.8-7.7); Neutrophils % 63.5 %; Nucleated Red Blood Cells % 0 %; Platelet Count 188 10^3/cmm (157-399); Red Blood Count 4.17 10^6/uL (3.85-5.65); Red Cell Distribution Width 13.5 % (12.1-15.1); White Blood Count 4.35 10^3/uL (3.29-11.43)
[2023-05-10 10:21] LABS: Erythrocyte Sedimentation Rate 8 mm/hr (0-15)
[2023-05-10 10:31] VITALS: BP 115/53; PULSE 71; O2SAT 99
[2023-05-10 10:33] LABS: Anion Gap 11.5 (5-19); Blood Urea Nitrogen 18 mg/dL (8-23); Calcium 9.6 mg/dL (8.5-10.5); Carbon Dioxide 29 mmol/L (22-29); Chloride 98 mmol/L (98-107); Glucose 83 mg/dL (65-115); Osmolality Calculated 279 mOsm/kg (285-295); Potassium 4.5 mmol/L (3.5-5.1); Sodium 134 mmol/L (136-145)
[2023-05-10 12:03] LABS: Add Urine Microscopic? YES; Bilirubin Urine Neg (Negative); Blood Urine Neg (Negative); Glucose Urine UA Norm (Normal); Ketones Urine Negative (Negative); Leukocyte Esterase Urine 2+ (Negative); Nitrate Urine Positive (Negative); Protein Urine Neg (Negative); Specific Gravity, Urine 1.015 (1.005-1.030); Urine Appearance Cloudy (CLEAR); Urine Color Yellow (Yellow); Urobilinogen Urine Norm (Negative); pH Urine 7 (5-7)
[2023-05-10 12:09] LABS: RBC Urine 0-4 /hpf (0-2); WBC Urine >100 /hpf (0-5)
[2023-05-10 12:10] LABS: Add Urine Culture? Yes; Bacteria Urine 3+ /hpf; Mucus Urine TRACE /hpf; Oval Fat Bodies Urine 2+ /hpf; Squamous Epithelial Cell Urine 0-4 /hpf (0-5)
--- NOTE | 2023-05-11 19:36 | DCPLANNER ---
Message sent to Neuro for a consult for trigeminal neuralgia-2 weeks
== END 2023-05-10 12:35 | disposition home or self-care (01) ==
PROVIDERS: Emergency Provider Emergency Medicine; PCP Family Medicine
DX: G50.0 Trigeminal neuralgia (principal); N30.90 Cystitis, unspecified without hematuria
CPT/HCPCS: 36415; 70450; 80048; 81001; 85025; 85651; 87077; 87086; 87186; 99284

== ENCOUNTER → 2023-12-26 14:04 | Outpatient (BNVA) | payer MEDICARE, SELFPAY | PROVIDERS: PCP Family Medicine; Visit Provider Family Medicine | DX: K90.41 Non-celiac gluten sensitivity (principal); M81.0 Age-related osteoporosis without current pathological fracture; A04.8 Other specified bacterial intestinal infections; K58.9 Irritable bowel syndrome, unspecified; E87.1 Hypo-osmolality and hyponatremia; N30.10 Interstitial cystitis (chronic) without hematuria; R53.83 Other fatigue | CPT/HCPCS: 80053; 82306; 82607; 83880; 83930; 83935; 84300; 84439; 85025 ==

== ENCOUNTER 2024-02-01 13:45 | Outpatient (CLI) | payer MEDICARE, SELFPAY ==
--- NOTE | 2024-02-01 14:00 | XR_ITS ---
WS: [id number] DEXA (DUAL ENERGY X-RAY ABSORPTIOMETRY) Bone mineral density was performed using a [employer] machine. HISTORY: Osteoporosis COMPARISON: None available. Lumbar spine BMD (L1-L4): 0.829 g/cm2 T score: -2.9 Z score: -0.6 Total hip BMD: Left: 0.672 g/cm2. T score: -2.7 Z score: 0.0 Right: 0.695 g/cm2. T score: -2.5 Z score: 0.2 10 year probability of a major osteoporotic fracture is 14.4%. XR/XR DEXA axial skeleton* [id number] IMPRESSION: OSTEOPOROSIS based upon the WHO classification for females.
== END 2024-02-01 13:46 | disposition home or self-care (01) ==
LOC: RAD 13:46
PROVIDERS: PCP Family Medicine; Visit Provider Family Medicine
DX: Z13.820 Encounter for screening for osteoporosis (principal); M81.0 Age-related osteoporosis without current pathological fracture
CPT/HCPCS: 77080

== ENCOUNTER → 2024-03-06 10:49 | Outpatient (BNVA) | payer MEDICARE, SELFPAY | PROVIDERS: PCP Family Medicine; Visit Provider Family Medicine | DX: D48.5 Neoplasm of uncertain behavior of skin (principal) | CPT/HCPCS: 88305 ==

== ENCOUNTER 2024-05-31 09:46 | Oncology outpatient (recurring) (ONCR) | payer MEDICARE, SELFPAY ==
[2024-05-31] MEDS: denosumab 60 mg SDV SUBCUT (10:13)
== END 2024-05-31 23:59 | disposition home or self-care (01) ==
PROVIDERS: PCP Family Medicine; Visit Provider Family Medicine
DX: M81.0 Age-related osteoporosis without current pathological fracture (principal); Z79.899 Other long term (current) drug therapy
CPT/HCPCS: 96402; J0897

== ENCOUNTER → 2024-06-12 15:57 | Outpatient (BNVA) | payer MEDICARE, SELFPAY | PROVIDERS: PCP Family Medicine; Visit Provider Nurse Practitioner | DX: N39.0 Urinary tract infection, site not specified (principal); R39.9 Unspecified symptoms and signs involving the genitourinary system | CPT/HCPCS: 81000; 87086 ==

== ENCOUNTER 2024-12-23 11:49 | Oncology outpatient (recurring) (ONCR) | payer MEDICARE, SELFPAY ==
[2024-12-23] MEDS: denosumab 60 mg SDV (Infusion Clinic Only) SUBCUT (12:04)
== END 2024-12-31 23:59 | disposition home or self-care (01) ==
LOC: ONCMED 11:50
PROVIDERS: PCP Family Medicine; Visit Provider Family Medicine
DX: M81.0 Age-related osteoporosis without current pathological fracture (principal); Z79.899 Other long term (current) drug therapy; K90.41 Non-celiac gluten sensitivity; K58.8 Other irritable bowel syndrome; E87.1 Hypo-osmolality and hyponatremia; F51.04 Psychophysiologic insomnia; R53.82 Chronic fatigue, unspecified; K29.50 Unspecified chronic gastritis without bleeding
CPT/HCPCS: 80053; 80061; 82306; 82310; 83970; 84439; 84443; 85025; 86803; 96372; J0897

== ENCOUNTER → 2025-01-23 13:06 | Outpatient (BNVA) | payer MEDICARE, SELFPAY | PROVIDERS: PCP Family Medicine; Referring Provider Family Medicine; Visit Provider Family Medicine | DX: K29.50 Unspecified chronic gastritis without bleeding (principal); Z86.19 Personal history of other infectious and parasitic diseases | CPT/HCPCS: 87338 ==